=== PATIENT | female | born 1980 | race Caucasian/White ===

== ENCOUNTER 2017-06-04 13:03 | Emergency (ER) | payer OTHER ==
[2017-06-04 13:09] VITALS: BMI 26.5
[2017-06-04] MEDS ORDERED: DEXTROSE 5%-LACTATED RINGERS 500 ML IV ONE ×2 (14:30→15:30)
[2017-06-04 14:31] VITALS: BP 92/53; PULSE 96; TEMP 99.9
[2017-06-04 14:40] LABS: HEMATOCRIT 32.9 % (32.4-45.2); HEMOGLOBIN 11.5 GM/dL (10.7-15.3); MCH 34.3 pg (25.7-33.7); MEAN PLT VOLUME 7.5 fl (7.5-11.1); PLATELET COUNT 248 K/MM3 (134-434); RBC 3.36 M/mm3 (3.60-5.2); RDW 12.5 % (11.6-15.6); WHITE BLOOD COUNT 10.5 K/mm3 (4.0-10.0)
[2017-06-04 15:05] LABS: AMYLASE 46 U/L (25-115); ANION GAP 9 (8-16); BLOOD UREA NITROGEN 9 mg/dL (7-18); CALCIUM 7.9 mg/dL (8.5-10.1); CHLORIDE 107 mmol/L (98-107); CO2 22 mmol/L (21-32); CREATININE 0.3 mg/dL (0.55-1.02); GLUCOSE,RANDOM 89 mg/dL (74-106); LIPASE 80 U/L (73-393); POTASSIUM 3.5 mmol/L (3.5-5.1); SODIUM 138 mmol/L (136-145)
[2017-06-04] MEDS ORDERED: ACETAMINOPHEN 325 MG TABLET (FP) PO ONE (15:40)
[2017-06-04] MEDS ORDERED: ACETAMINOPHEN 325 MG TABLET (FP) ONE (15:43)
== END 2017-06-04 17:20 | disposition home or self-care (01) ==
LOC: JER 13:03
DX: O26.892 Other specified pregnancy related conditions, second trimester (principal); R10.30 Lower abdominal pain, unspecified; M54.5 Low back pain; R11.2 Nausea with vomiting, unspecified; Z3A.21 21 weeks gestation of pregnancy
CPT/HCPCS: 36415; 80048; 82150; 83690; 85027; 99282-25

== ENCOUNTER 2017-10-10 07:45 | Inpatient (IN) | payer OTHER ==
[2017-10-10] MEDS ORDERED: CITRIC ACID/SODIUM CITRATE 30 ML UNIT-DOSE CUP PO ONE (08:30)
[2017-10-10] MEDS ORDERED: ELECTROLYTE-148 SOLN 1,000 ML IV SCH (09:00)
[2017-10-10] MEDS ORDERED: ELECTROLYTE-148 SOLN 1,000 ML IV ONE (09:00)
[2017-10-10 09:02] VITALS: BMI 31.8
--- NOTE | 2017-10-10 09:38 | HP ---
Past Medical History - Admission History of Present Illness: 36 yo @ 39 3/7 wks by first trimester ultrasound, EDC 10/14/2017 complicated by: 1. Transfer of care at 19 wks 2. 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 Prior CD, desiring repeat - declines TOLAC 4. Prior GDM - normal glucose screening this Patient presents for routine scheduled CD. She reports movement, denies leakage of fluid, vaginal bleeding or contractions. 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 Weeks Gestation by Dates: 39.4 ...EDC by Dates: 10/13/17 ...EDC by Sono: 10/14/17 Heme/Onc: No: Anemia - Past Surgical History Past Surgical History: Yes: Hx Myomectomy: No Hx Transabdominal Cerclage: No - Smoking History Smoking history: Never smoked Have you smoked in the past 12 months: No - Alcohol/Substance Use Hx Alcohol Use: No History of Substance Use: reports: None - Social History Usual Living Arrangement: Yes: With Spouse History of Recent Travel: No Home Medications - Allergies Allergies/Adverse Reactions: Allergies Allergy/AdvReac Type Severity Reaction Status Date / Time No Known Allergies Allergy Verified 10/10/17 08:33 - Home Medications Home Medications: Ambulatory Orders Vit No.130/Iron/Folic [ Vitamins] 1 each PO DAILY 06/04/17 Ferrous Sulfate 325 mg PO DAILY 09/11/17 Valacyclovir HCl [Valtrex -] 500 mg PO BID 10/10/17 Family Disease History - Family Disease History Family History: Denies Review of Systems - Review of Systems Constitutional: reports: No Symptoms Neck: reports: No Symptoms Cardiovascular: reports: No Symptoms Respiratory: reports: No Symptoms Gastrointestinal: reports: No Symptoms Genitourinary: reports: No Symptoms Integumentary: reports: No Symptoms Endocrine: reports: No Symptoms Hematology/Lymphatic: reports: No Symptoms Psychiatric: reports: No Symptoms Physical Exam - Maternity Vital Signs: Vital Signs Temperature 98.5 F 10/10/17 09:21 Pulse Rate 86 10/10/17 09:21 Respiratory Rate 20 10/10/17 09:21 Blood Pressure 127/77 10/10/17 09:21 O2 Sat by Pulse Oximetry (%) Constitutional: Yes: Well Nourished, No Distress, Calm Neck: Yes: Supple Cardiovascular: Yes: Regular Rate and Rhythm Lungs: Clear to auscultation - Abdominal Exam/OB Number of Fetuses: Single Presentation: Vertex Contractions: Yes Regularity: Regular Intensity: Mild/Mod Heart Rate (range): 140 Category: I Accelerations: Non-Uniform Decelerations: None - Vaginal Exam/OB Vaginal Bleediing: No - Physical Exam Psychiatric: Yes: Alert, Oriented - Labs Lab Results: PNL: O positive; antibody negative; RPR NR; HBS Ag ; HCV neg; Rubella Immune; Varicella immune; Hg Greer AA; Inheritest WNL; Parvo Imm; ; [id number] WNL; HIV neg; GCT WNL; GBS negative Hemorrhage Risk Assessment - Risk Factors Medium Risk Factors: Yes: None High Risk Factors: Yes: None Risk Score: 1 Risk Level: Medium Risk Assessment/Plan 36 yo P1 prior Cd for repeat 1. Admit to L&D 2. consents reviewed and signed. Risks including but not limited to infection, bleeding, damage to surrounding organs such as bowel and bladder, injury to infant discussed. Discussed need for future planning, risk of abnormal placentation discussed. Written consent obtained. 3. 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 Will proceed to OR
[2017-10-10] MEDS ORDERED: morphine SULFATE/Preservative Free 0.5 MG/ML (1cc Syringe) ONE (10:03)
[2017-10-10] MEDS ORDERED: ceFAZolin SODIUM 1 GM VIAL ONE (10:05)
[2017-10-10] MEDS ORDERED: IBUPROFEN 800 MG/8 ML IJ IVPB PRN (10:22)
[2017-10-10] MEDS ORDERED: ONDANSETRON 4 MG/2 ML VIAL IVPUSH PRN (10:25)
[2017-10-10] MEDS ORDERED: OXYTOCIN 10 UNITS/ML VIAL ONE ×2 (11:07→11:48)
[2017-10-10] MEDS ORDERED: BENZOCAINE 28 GM HEMORRHOIDAL OINTMENT TP PRN (12:11)
[2017-10-10] MEDS ORDERED: WITCH HAZEL 50% (TUCKS) 40 PAD/JAR PAD TP PRN (12:11)
[2017-10-10] MEDS ORDERED: BENZOCAINE 20% 57 GM BOTTLE TP PRN (12:11)
[2017-10-10] MEDS ORDERED: METHYLERGONOVINE MALEATE 0.2 MG/1 ML AMP IM PRN (12:11)
[2017-10-10 12:12] LABS: ARTERIAL BLD GAS O2 SATURATION 19.9 % (90-98.9); ARTERIAL BLOOD GAS BASE EXCESS -8.4 meq/l (-2-2); ARTERIAL BLOOD GAS PCO2 79.2 mmHg (35-45); ARTERIAL BLOOD GAS PO2 15.8 mmHg (80-100); ARTERIAL BLOOD GAS pH 7.1 (7.35-7.45)
[2017-10-10] MEDS ORDERED: OXYTOCIN 20 UNITS in 0.9% NS 20 UNIT/1,000 ML INFUS.BAG IV SCH (12:15)
[2017-10-10 12:16] LABS: VENOUS PC02 70.9 mmHg (38-52); VENOUS PH 7.17 (7.32-7.42); VENOUS PO2 12.3 mmHg (28-48)
--- NOTE | 2017-10-10 12:27 | PN ---
Delivery - Delivery Section: Repeat EBL (cc): 1,000 Delivery, Single - Condition of Infant Gender: Female Weight: 8 lb 15 oz Position: Left, OA - 1 Minute Total Score: 6 5 Minutes Total Score: 9 - Feeding Plan Initial Plan: Elected not to breastfeed exclusively throughout hospitalization Remarks - Remarks Remarks: Surgeon: Angel; Assist: Feliciano; Anesthesia: Benjamin Surgery: Repeat delivery Findings: Female ; LOT, 6, 9; Wt 8lb 15 oz; Length: 20.5 inches; Normal tubes and ovaries bilaterally; meconium fluid; nuchal cord reduced EBL: 1000; UOP: 100; IVF 2100 Dictation:[id number]
[2017-10-10] MEDS ORDERED: IBUPROFEN 800 MG/8 ML IJ IVPB ONE (12:54)
[2017-10-10] MEDS ORDERED: TUBERCULIN PPD 5 TU/0.1ML SYRINGE (IN PATIENT USE ONLY) ID ONE (19:30)
[2017-10-10] MEDS ORDERED: OXYTOCIN 20 UNITS in 0.9% NS 20 UNIT/1,000 ML INFUS.BAG IV ONE (19:51)
[2017-10-11] MEDS: SIMETHICONE 80 MG TAB.CHEW (FP) PO PRN ×4 (05:48→20:41)
[2017-10-11] MEDS: ACETAMINOPHEN 325 MG TABLET (FP) PO PRN ×4 (05:48→20:42)
[2017-10-11] MEDS: IBUPROFEN 600 MG TABLET (FP) PO PRN ×4 (05:49→20:43)
--- NOTE | 2017-10-11 07:24 | OP ---
DATE OF OPERATION: 10/10/2017 ATTENDING PHYSICIAN RESPONSIBLE TO SIGN REPORT: Sheree Ortiz MD PREOPERATIVE DIAGNOSIS: Intrauterine at 39 weeks, prior section, desiring repeat. POSTOPERATIVE DIAGNOSIS: Intrauterine at 39 weeks, prior section, desiring repeat. SURGEON: Sheree Ortiz MD GROUNDS MAINTENANCE WORKER: Kris Wiggins MD ANESTHESIOLOGIST: Lex Alexander MD ANESTHESIA: Spinal. SURGERY: Repeat delivery. FINDINGS: Female infant in LOT position; Apgars 6, 9; weight 8 pounds 16 ounces , length 20.5 inches, normal tubes and ovaries bilaterally. ESTIMATED BLOOD LOSS: 1000. URINE OUTPUT: 100. INTRAVENOUS FLUIDS GIVEN: 2100. INDICATIONS: Patient is a 36-year-old with 1 prior desiring repeat. She was counseled regarding risks, benefits, alternatives, and complications of procedure including infection, bleeding, damage to surrounding organs such as bowel, bladder, ureters. She expressed understanding and was brought to the operating room. DESCRIPTION OF PROCEDURE: When anesthesia was found to be adequate, patient was prepped and draped in a normal sterile fashion, placed in dorsal supine position with a leftward tilt. An approximately 11-cm skin incision was made with the knife and carried down to the underlying rectus muscles using Bovie electrocautery. The fascia was nicked in the midline, extended laterally using the Abraham scissors. Inferior portion of the fascial incision was tented up using Ted clamps and dissected off the underlying rectus muscles using the Abraham scissors. Attention was brought to the superior portion, where in similar fashion, it was tented up using Ted clamps , and dissected off the underlying rectus muscles using the Abraham scissors. The rectus muscles were in the midline. The peritoneum was entered sharply, and the peritoneal incision was extended superiorly and inferiorly. Severe dense adhesions were noted from the bladder to the uterus, which were taken down with Metzenbaum scissors. The hysterotomy was performed. Light meconium fluid was noted. The hysterotomy incision was extended laterally, superolaterally using bandaged scissors. Infants head was found to be unengaged, and with mild difficulty with delivery and flexion of the head, vacuum was attempted with which one pop-off was noted , and the infants head was eventually delivered. Nuchal cord noticed, was then reduced. Shoulders and body were delivered. Cord was clamped and cut. Infant was handed to waiting NICU staff. Cord blood and cord gasses were collected and sent. Placenta was removed. The uterus was cleared of all clot and debris. The uterus was closed using 0 Biosyn in a running layer with the 2nd as an imbricated layer. The vesicouterine peritoneum was reapproximated. Gutters were cleared of all clot and debris. Evaluation of the hysterotomy revealed good hemostasis. The peritoneum was closed using 2-0 Biosyn in a running fashion. The muscles were reapproximated using 0 Biosyn in an interrupted fashion. The fascia was closed using 0 Vicryl in a running fashion. The subcutaneous fat was closed using 0 Biosyn in a running fashion. The skin was reapproximated using 3-0 Vicryl. The patient tolerated the procedure well. Estimated blood loss was 1000 mL. Patient was brought to the recovery room in stable condition. Wally [id number] MTDD
--- NOTE | 2017-10-11 07:33 | PN ---
Post Progress Note - Subjective Subjective: Patient without acute complaints. Tolerating clears, without complaints of nausea or vomiting. No ambulation yet. Denies fevers or chills. without difficulty Pain well controlled Coyne removed this AM, no voiding yet. Denies flatus. continued itching, but mild improvement with rash Post Day: 1 Type of Delivery: Repeat C/S Vital Signs: Vital Signs Temperature 98.1 F 10/11/17 06:00 Pulse Rate 76 10/11/17 06:00 Respiratory Rate 18 10/11/17 06:50 Blood Pressure 116/66 10/11/17 06:00 O2 Sat by Pulse Oximetry (%) 99 10/10/17 13:15 Breast Exam: Yes: Soft Uterus: Yes: Fundus Firm, Fundus below umbilicus Incision: Yes: Dressing dry and intact Abdomen/GI: Yes: Abdomen soft, Abdominal Distention (mild soft), Passing flatus , Tolerating PO. No: Tender Lochia: Yes: Serosa Lochia, amount: Small Extremities: Yes: Calves non-tender. No: Edema Perineum: Yes: Laceration Activity: Ambulating Assessment/Plan 36 yo POD #1 s/p R CD, afebrile, vital signs stable, doing well 1. Continue routine postoperative care. 2. Follow up AM CBC 3. Rh positive status, no rhogam indicated. 4. Encourage ambulation and incentive spirometer use 5. Continue oral pain medication 6. Anticipate discharge home postoperative day #3 or #4
[2017-10-11 08:18] LABS: BASO % 0.4 % (0-2.0); EOS % 2.6 % (0-4.5); HEMATOCRIT 29.5 % (32.4-45.2); HEMOGLOBIN 9.7 GM/dL (10.7-15.3); LYMPH % 17.9 % (8-40); MCH 31.1 pg (25.7-33.7); MCHC 32.9 g/dl (32.0-36.0); MEAN CELL VOLUME 94.5 fl (80-96); MEAN PLT VOLUME 8.2 fl (7.5-11.1); MONO % 4.1 % (3.8-10.2); PLATELET COUNT 160 K/MM3 (134-434); RBC 3.12 M/mm3 (3.60-5.2); RDW 20.3 % (11.6-15.6); WHITE BLOOD COUNT 6.9 K/mm3 (4.0-10.0)
[2017-10-11] MEDS: oxyCODONE HCL 5 MG TABLET PO PRN ×3 (11:14→20:43)
--- NOTE | 2017-10-11 11:23 | PN ---
Progress Note, Physician Chief Complaint: s/p c section under spinal anesthesia post op day one History of Present Illness: duramorph for post op pain control - Current Medication List Current Medications: Active Medications Acetaminophen (Tylenol -) 650 mg PO Q4H PRN PRN Reason: FEVER Last Admin: 10/11/17 09:43 Dose: 650 mg Benzocaine (Americaine 20% [place] -) 1 spray TP PRN PRN PRN Reason: Pain - Topical Benzocaine (Americaine Ointment -) 1 applic TP PRN PRN PRN Reason: Pain - Topical Bisacodyl (Dulcolax Suppository -) 10 mg RC PRN PRN PRN Reason: CONSTIPATION Diphenhydramine HCl (Benadryl Injection -) 25 mg IVPUSH Q4H PRN PRN Reason: FOR ITCHING Hydrocortisone (Anusol 2.5% Hc Cream -) 1 applic TP BID ELIZABETH Hydrocortisone (Hytone 1% Ointment -) 1 applic TP Q6H PRN PRN Reason: itching Ibuprofen (Motrin -) 600 mg PO Q4H PRN PRN Reason: PAIN LEVEL 1 - 3 Last Admin: 10/11/17 09:42 Dose: 600 mg Methylergonovine Maleate (Methergine Injection -) 0.2 mg IM Q4H PRN PRN Reason: Excessive Bleeding (L&D) Ondansetron HCl (Zofran Injection) 4 mg IVPUSH Q6H PRN PRN Reason: NAUSEA AND/OR VOMITING Last Admin: 10/10/17 22:18 Dose: 4 mg Oxycodone HCl (Roxicodone -) 5 mg PO Q4H PRN PRN Reason: PAIN LEVEL 4 - 6 Last Admin: 10/11/17 11:14 Dose: 5 mg Oxycodone HCl (Roxicodone -) 10 mg PO Q4H PRN PRN Reason: PAIN LEVEL 7 - 10 Senna/Docusate Sodium (Pericolace -) 2 tablet PO HS PRN PRN Reason: CONSTIPATION Simethicone (Mylicon -) 80 mg PO Q4H PRN PRN Reason: GAS Last Admin: 10/11/17 09:43 Dose: 80 mg Witch Anne-Marie/Glycerin (Tucks Pads -) 1 pad TP PRN PRN PRN Reason: Pain - Topical Zinc Acetate/Diphenhydramine (Benadryl 2% Cream) 1 applic TP BID ELIZABETH Last Admin: 10/11/17 10:46 Dose: 1 tube - Objective Vital Signs: Vital Signs Temperature 97.4 F L 10/11/17 09:04 Pulse Rate 78 10/11/17 09:04 Respiratory Rate 18 10/11/17 10:43 Blood Pressure 109/72 10/11/17 09:04 O2 Sat by Pulse Oximetry (%) 99 10/10/17 13:15 Constitutional: Yes: Well Nourished Cardiovascular: Yes: WNL Respiratory: Yes: WNL Gastrointestinal: Yes: WNL Labs: CBC, BMP 10/11/17 07:50 Assessment/Plan pain controlled, no nausea or vomiting, no adverse effect of anesthetic. dept of anesthesia will sign off care at this time
[2017-10-11] MEDS ORDERED: BISACODYL 10 MG SUPP.RECT RC PRN (12:11)
[2017-10-11] MEDS: HYDROCORTISONE 1% TOPICAL OINT 30 GM TUBE TP PRN ×2 (14:09→22:06)
[2017-10-11] MEDS: HYDROCORTISONE 2.5% TOPICAL CREAM 30 GM TUBE TP SCH ×2 (14:11→22:04)
[2017-10-12] MEDS: SIMETHICONE 80 MG TAB.CHEW (FP) PO PRN ×4 (06:08→21:46)
[2017-10-12] MEDS: IBUPROFEN 600 MG TABLET (FP) PO PRN ×4 (06:09→21:45)
[2017-10-12] MEDS: ACETAMINOPHEN 325 MG TABLET (FP) PO PRN ×2 (06:09→21:46)
[2017-10-12] MEDS: oxyCODONE HCL 5 MG TABLET PO PRN ×4 (06:09→21:46)
--- NOTE | 2017-10-12 08:20 | PN ---
Progress Note (short form) - Note Progress Note: pod 2 doing well, passing gas CBC, BMP 10/11/17 07:50 Last Vital Signs Temp Pulse Resp BP Pulse Ox 98.0 F 79 18 117/57 99 10/11/17 22:00 10/11/17 22:00 10/11/17 22:00 10/11/17 22:00 10/10/17 13:15 abdomen soft, no distension, no cva incision dry, clean no calf tenderness no excess vaginal bleeding plan ambulate . cbc in am
[2017-10-12] MEDS: HYDROCORTISONE 2.5% TOPICAL CREAM 30 GM TUBE TP SCH ×2 (10:24→23:04)
[2017-10-12] MEDS: SENNOSIDES/DOCUSATE COMBO (SENNA PLUS) TABLET (UD) PO PRN (21:46)
[2017-10-13] MEDS: ACETAMINOPHEN 325 MG TABLET (FP) PO PRN (04:20)
[2017-10-13] MEDS: SIMETHICONE 80 MG TAB.CHEW (FP) PO PRN ×5 (04:20→22:23)
[2017-10-13] MEDS: oxyCODONE HCL 5 MG TABLET PO PRN ×5 (04:21→22:23)
[2017-10-13] MEDS: IBUPROFEN 600 MG TABLET (FP) PO PRN ×5 (04:21→22:23)
[2017-10-13 07:15] LABS: BASO % 0.3 % (0-2.0); HEMATOCRIT 30.2 % (32.4-45.2); HEMOGLOBIN 10.3 GM/dL (10.7-15.3); LYMPH % 23.1 % (8-40); MCH 32.1 pg (25.7-33.7); MEAN CELL VOLUME 94.6 fl (80-96); MEAN PLT VOLUME 7.9 fl (7.5-11.1); MONO % 4.3 % (3.8-10.2); NEUT % 67.3 % (42.8-82.8); PLATELET COUNT 184 K/MM3 (134-434); RBC 3.19 M/mm3 (3.60-5.2); RDW 20.5 % (11.6-15.6); WHITE BLOOD COUNT 6.6 K/mm3 (4.0-10.0)
[2017-10-13] MEDS: HYDROCORTISONE 1% TOPICAL OINT 30 GM TUBE TP PRN (10:07)
[2017-10-13] MEDS: HYDROCORTISONE 2.5% TOPICAL CREAM 30 GM TUBE TP SCH ×2 (10:08→21:06)
[2017-10-13 13:18] LABS: ANISOCYTOSIS 1+; PLATELET ESTIMATE ADEQUATE
--- NOTE | 2017-10-13 14:34 | PN ---
Post Progress Note - Subjective Subjective: No complains, voiding, ambulating, tolerating regular diet Post Day: 3 Type of Delivery: Repeat C/S Vital Signs: Vital Signs Temperature 98.4 F 10/13/17 10:00 Pulse Rate 69 10/13/17 10:00 Respiratory Rate 20 10/13/17 10:00 Blood Pressure 111/67 10/13/17 10:00 O2 Sat by Pulse Oximetry (%) 99 10/10/17 13:15 Breast Exam: Yes: Soft Uterus: Yes: Fundus Firm Incision: Yes: Dressing dry and intact Abdomen/GI: Yes: Abdomen soft Lochia: Yes: Rubra Lochia, amount: Small Extremities: Yes: Calves non-tender Activity: Ambulating - Labs Labs: CBC WBC 6.6 K/mm3 (4.0-10.0) 10/13/17 06:00 RBC 3.19 M/mm3 (3.60-5.2) L 10/13/17 06:00 Hgb 10.3 GM/dL (10.7-15.3) L 10/13/17 06:00 Hct 30.2 % (32.4-45.2) L 10/13/17 06:00 MCV 94.6 fl (80-96) 10/13/17 06:00 MCH 32.1 pg (25.7-33.7) 10/13/17 06:00 MCHC 34.0 g/dl (32.0-36.0) 10/13/17 06:00 RDW 20.5 % (11.6-15.6) H 10/13/17 06:00 Plt Count 184 K/MM3 (134-434) 10/13/17 06:00 MPV 7.9 fl (7.5-11.1) 10/13/17 06:00 Absolute Neuts (auto) 4.4 K/mm3 (1.5-8.0) 10/13/17 06:00 Neutrophils % 67.3 % (42.8-82.8) 10/13/17 06:00 Lymphocytes % 23.1 % (8-40) D 10/13/17 06:00 Monocytes % 4.3 % (3.8-10.2) 10/13/17 06:00 Eosinophils % 5.0 % (0-4.5) H D 10/13/17 06:00 Basophils % 0.3 % (0-2.0) 10/13/17 06:00 Nucleated RBC % 0 % (0-0) 10/13/17 06:00 Hypochromia 1+ 10/13/17 06:00 Platelet Estimate Adequate 10/13/17 06:00 Platelet Comment No clumping noted 10/13/17 06:00 Polychromasia 1+ 10/13/17 06:00 Anisocytosis 1+ 10/13/17 06:00 Microcytosis 1+ 10/13/17 06:00 Assessment/Plan 36yo P2 s/p Repeat c/section VSS, Afebrile Doing well Rh pos - no need for RhoGam Routine care Plan d/c 10/14/17
[2017-10-13] MEDS: SENNOSIDES/DOCUSATE COMBO (SENNA PLUS) TABLET (UD) PO PRN (21:06)
[2017-10-13 22:05] VITALS: TEMP 98
[2017-10-14] MEDS: oxyCODONE HCL 5 MG TABLET PO PRN ×2 (05:20→09:40)
[2017-10-14] MEDS: SIMETHICONE 80 MG TAB.CHEW (FP) PO PRN ×2 (05:20→09:40)
[2017-10-14] MEDS: ACETAMINOPHEN 325 MG TABLET (FP) PO PRN (05:20)
[2017-10-14] MEDS: HYDROCORTISONE 2.5% TOPICAL CREAM 30 GM TUBE TP SCH (09:33)
[2017-10-14] MEDS: HYDROCORTISONE 1% TOPICAL OINT 30 GM TUBE TP PRN (09:35)
[2017-10-14] MEDS: IBUPROFEN 600 MG TABLET (FP) PO PRN (09:40)
[2017-10-14 10:41] VITALS: BP 123/78; PULSE 76
--- NOTE | 2017-10-14 12:36 | DS ---
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 Signs: Vital Signs Temperature 98 F 10/14/17 10:00 Pulse Rate 76 10/14/17 10:00 Respiratory Rate 20 10/14/17 10:00 Blood Pressure 123/78 10/14/17 10:00 O2 Sat by Pulse Oximetry (%) 99 10/10/17 13:15 Constitutional: Yes: Well Nourished, No Distress, Calm Eyes: Yes: WNL, Conjunctiva Clear, EOM Intact HENT: Yes: WNL, Atraumatic, Normocephalic Neck: Yes: WNL, Supple, Trachea Midline Cardiovascular: Yes: WNL, Regular Rate and Rhythm Respiratory: Yes: WNL, Regular, CTA Bilaterally Gastrointestinal: Yes: WNL, Normal Bowel Sounds, Soft Renal/: Yes: WNL Pelvis: Yes: WNL External Genitalia: Yes: Normal ....Post : Yes: Uterus firm, Uterus non-tender Breast(s): Yes: WNL Musculoskeletal: Yes: WNL Extremities: Yes: WNL Integumentary: Yes: WNL Wound/Incision: Yes: Clean/Dry, Well Approximated Neurological: Yes: WNL, Alert, Oriented ...Motor Strength: WNL Psychiatric: Yes: WNL, Alert, Oriented Labs: CBC, BMP 10/13/17 06:00 Delivery - Delivery Section: Repeat Type of Anesthesia: Spinal Episiotomy/Laceration: None EBL (cc): 1,000 Delivery, Single - Stages of Labor Date of Delivery: 10/10/17 Time of Delivery: 11:19 Time Placenta Delivered: 11:20 - Condition of Java Android Developer/Rand 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 You may walk unlimited ynes of and climb stairs. You may resume driving the car when you feel safe and comfortable behind the wheel. No sexual activity as instructed. Wound care If you have a bandage, leave it on, and keep dry for 48-72 hours. After that time discard the outer bandage. If they are tapes on the skin under the out of bandage leave them in place. They will peel off in the next 7 to 10 days. Do Not Peel them off. You may shower the day after surgery. If there are tapes present on the skin, you may shower over them. Diet There are no dietary restrictions. Eat healthy, high-fiber foods. Drink 6 to 8 glasses of liquid each day. This will assist in keeping your bowels are regular. Pain management You may take Tylenol or acetaminophen or Ibuprofen (for example, Motrin, Advil etc.) from my pain prescription medication is ordered should be taken as prescribed for moderate to severe pain. Call MD for any of the following: Severe pain not relieved by medication Fever of 101 or higher Excessive bleeding or drainage on dressing Inability to urinate Referrals: Miguelangel Worrell MD [Staff Physician] - Disposition: HOME - Home Medications Comprehensive Discharge Medication List: Ambulatory Orders Vit No.130/Iron/Folic [ Vitamins] 1 each PO DAILY 06/04/17 Ferrous Sulfate 325 mg PO DAILY 09/11/17 Valacyclovir HCl [Valtrex -] 500 mg PO BID 10/10/17 Oxycodone HCl/Acetaminophen [Percocet 5-325 mg Tablet -] 1 - 2 tab PO Q6H PRN # 20 tab MDD 8 10/12/17
--- NOTE | 2017-10-18 15:48 | PATH ---
Surgical Pathology Report Patient Name: MARGARITO AYALA [facility]. Rec. #: [id number] /Age/Gender: 1980 (Age: 36) / F Account: [id number] Location: [facility] OBS/SOFTWARE CLIENT ARCHITECT Taken: 10/10/2017 Received: 10/11/2017 Reported: 10/18/2017 Physicians: Sheree Ortiz Specimen(s) Received PLACENTA Clinical History , previous x2 Final Diagnosis PLACENTA, SECTION: 626 G THIRD TRIMESTER PLACENTA WITH TRIVASCULAR UMBILICAL CORD AND PLACENTAL MEMBRANES WITH MECONIUM LADEN MACROPHAGES. Electronically Signed Еелна Eller M.D. Gross Description The specimen is received fresh labeled placenta and is a 626 gram, 19.0 x 17.0 x 3.1 cm. placenta with attached membranes and umbilical cord. The attached membranes are kohli green, meconium stained, cloudy and insert marginally. The umbilical cord measures 20 cm. in length and averages 1 cm. in diameter. The cord inserts centrally. No true knots or strictures are identified. Cut surface of the umbilical cord reveals 3 vessels. The surface is swan green, meconium stained with minimal fibrin deposition and appropriate caliber vessels. The maternal surface is red-brown with focal defects. Sectioning reveals red-brown, spongy parenchyma. No lesions are identified. Branch Administrator sections are submitted in three cassettes as follows: 1- membrane rolls and umbilical cord; 2-3- full thickness sections of placenta. 10/17/2017 [facility]/17/2017
== END 2017-10-14 12:40 | disposition home or self-care (01) | DRG 540 ==
LOC: JLDR 07:45 → J3W 20:05
PROVIDERS: ADMIT Obstetrics & Gynecology; ATTEND Obstetrics & Gynecology
PROC: 10D00Z1 Extraction of Products of Conception, Low, Open Approach (ICD-10-PCS; principal; 2017-10-10)
DX: O34.211 Maternal care for low transverse scar from previous cesarean delivery (principal); O98.313 Other infections with a predominantly sexual mode of transmission complicating pregnancy, third trimester; O69.81X0 Labor and delivery complicated by cord around neck, without compression, not applicable or unspecified; O77.0 Labor and delivery complicated by meconium in amniotic fluid; O36.0930 Maternal care for other rhesus isoimmunization, third trimester, not applicable or unspecified; A60.09 Herpesviral infection of other urogenital tract; O26.893 Other specified pregnancy related conditions, third trimester; J45.909 Unspecified asthma, uncomplicated; G43.909 Migraine, unspecified, not intractable, without status migrainosus; Z3A.39 39 weeks gestation of pregnancy; Z37.0 Single live birth
CPT/HCPCS: 36415; 36600; 82803; 85025; 88307-TC

== ENCOUNTER 2017-10-25 18:36 | Emergency (ER) | payer OTHER ==
[2017-10-25 18:50] VITALS: BP 121/57; PULSE 102; TEMP 99.7; BMI 29.2
--- NOTE | 2017-10-25 18:52 | PDOC ---
Rapid Medical Evaluation Chief Complaint: Pain, Acute Time Seen by Provider: 10/25/17 18:46 Medical Evaluation: Allergies Allergy/AdvReac Type Severity Reaction Status Date / Time No Known Allergies Allergy Verified 10/25/17 18:45 10/25/17 18:47 Pt presents for abdominal pain s/p . Pt states that it feels like gas pain and that it is sharp and stabbing. Rates the pain a 7/10. Pt is having bowel movements and passing gas. Exam: abdomen diffusely tender, but soft. VSS, afebrile Order: Labs, IV Pt to proceed to ED for further evaluation Discharge Disposition - Diagnosis Abdominal pain - Referrals - Patient Instructions - Post Discharge Activity
--- NOTE | 2017-10-25 19:34 | PDOC ---
History of Present Illness - General Chief Complaint: Pain, Acute Stated Complaint: PCP SENT/ABDOMINAL PAIN Time Seen by Provider: 10/25/17 18:46 - History of Present Illness Initial Comments: 10/25/17 20:21 The patient is a 36 year old female with no significant PMH who presents for evaluation of abdominal pain and fever. The patient reports that she recently had a on 10/10. She notes that over the past 1-2 days, she has been experiencing poorly described periumbilical abdominal pain that she describes as a bloating sensation with some associated nausea. She states that she measured a fever of 100.3 today prompting her presentation to the ED for further evaluation. She notes that her pain is somewhat similar to her post- operative pain that she has been experiencing. She otherwise denies chills, SOB , chest pain, vomiting, vaginal discharge, or changes with urination or bowel movements. Past History - Past Medical History Allergies/Adverse Reactions: Allergies Allergy/AdvReac Type Severity Reaction Status Date / Time No Known Allergies Allergy Verified 10/25/17 18:45 Home Medications: Ambulatory Orders Amox-Tr/K Cl [Augmentin - 875Mg Tablet] 1 tab PO BID #14 tablet 10/26/17 Asthma: No Cancer: No Cardiac Disorders: No COPD: No Diabetes: No HTN: No Seizures: No Thyroid Disease: No - Suicide/Smoking/Psychosocial Hx Smoking History: Never smoked Have you smoked in the past 12 months: No Hx Alcohol Use: No Drug/Substance Use Hx: No Substance Use Type: None Hx Substance Use Treatment: No Review of Systems - Review of Systems Comments:: 10/25/17 20:29 Constitutional: Fevers. No chills, fatigue, malaise HEENT: No Rhinorrhea, nasal congestion, visual changes Cardiovascular: No chest pain, syncope, palpitations, lightheadedness Respiratory: No Cough, SOB, Hemoptysis, Gastrointestinal: Abdominal pain. nausea. No Vomiting, Constipation, Diarrhea, Melena Genitourinary: Dysuria. No Frequency, Urgency, Hesitancy, Hematuria, Flank pain Musculoskeletal: No Myalgia, arthralgia Skin: No rashes, itching, bruising, pallor Neurologic: No Headache, Dizziness, Numbness, Weakness, or Tingling Psychiatric: No Hallucinations. No SI or HI *Physical Exam - Vital Signs Last Vital Signs Temp Pulse Resp BP Pulse Ox 99.7 F H 102 H 18 121/57 100 10/25/17 18:45 10/25/17 18:45 10/25/17 18:45 10/25/17 18:45 10/25/17 18:45 - Physical Exam Comments: 10/25/17 21:18 General Appearance: Nourished. No Apparent Distress HEENT: No Pharyngeal Erythema, Tonsillar Exudate, Tonsillar Erythema Neck: No Cervical Lymphadenopathy Respiratory/Chest: Lungs Clear, Normal Breath Sounds. No Crackles, Rales, Rhonchi, Wheezing Cardiovascular: Regular Rhythm, Regular Rate. No Murmur, Gallops, Rubs Gastrointestinal/Abdominal: Normal Bowel Sounds, Soft. Diffuse periumbilical discomfort with palpation. No Guarding, Rebound, Pelvic Exam: Normal external exam. Cervical OS is Closed. No Discharge noted. No CMT or Adenexal tenderness. Musculoskeletal: No CVA Tenderness Extremity: Normal Capillary Refill Integumentary: Normal Color, Dry, Warm Neurologic: Fully Oriented, Alert, Normal Mood/Affect, Normal Response, ED Treatment Course - LABORATORY CBC & Chemistry Diagram: 10/25/17 18:40 10/25/17 18:40 Medical Decision Making - Medical Decision Making 10/25/17 21:24 The patient is a 36 year old female with no significant PMH who presents for evaluation of abdominal pain and fever. Differential includes but is not limited to: Pancreatitis, Gastritis, UTI, Surgical Complications, Illeus, Infectious, Metabolic Derangement. Given the patient's history and physical exam, we will obtain a cbc, cmp, lipase, ua, urine culture, CT abdomen pelvis to evaluate further for possible etiologies. We will treat with iv fluids, iv tylenol in the meantime and continue to monitor and reassess while here in the ED. 10/26/17 03:45 CBC, cmp, lipase are unremarkable. UA demonstrates a positive leuk esterase with elevated wbc. CT abdomen pelvis demonstrates hypodense structure in the uterus as read by our radiologist. Subsequent trans vaginal US demonstrated concerns for possible retained products of conception as preliminarily read by our front counter clerk radiologist. We discussed the case with Dr. Wiggins who recommended treatment with augmentin and follow up with the patient's OB Dr. Worrell today. We are comfortable discharging the patient home on augmentin with OB follow up today given that she appears clinically well on exam. We discussed the results, plan, and strict return precautions with the patient who voiced understanding and is agreeable with the plan. *DC/Admit/Observation/Transfer Diagnosis at time of Disposition: Abdominal pain Qualifiers: Abdominal location: unspecified location Qualified Code(s): R10.9 - Unspecified abdominal pain - Discharge Dispostion Disposition: HOME Condition at time of disposition: Stable Decision to Admit order: No - Prescriptions Prescriptions: Amox-Tr/K Cl [Augmentin - 875Mg Tablet] 1 tab PO BID #14 tablet - Referrals Referrals: Bambi Abreu [Primary Care Provider] - Miguelangel Worrell MD [Staff Physician] - - Patient Instructions Printed Discharge Instructions: DI for Abdominal Pain-Adult Additional Instructions: Please return to the ER if you experience concerning or worsening symptoms including worsening pain, fevers, or vomiting. Your lab results were normal here in the ER. There were findings on your CT scan and ultrasound that were concerning for retained products of conception. We have sent a prescription to your pharmacy for antibiotics that you take twice a day. You must call to schedule a follow up appointment with Dr. Worrell TODAY to discuss your ER visit, results, and further management of your symptoms. - Post Discharge Activity
--- NOTE | 2017-10-25 19:46 | PDOC ---
Attending Attestation - Resident Resident Name: Nikolay Green - HPI HPI: 10/25/17 21:22 Pt presents to the ED complaining of nausea and diffuse abdominal pain that has been intermittent since her C section two weeks ago but recurred two days ago. Patient also complains of fever today and nausea without vomiting. STates that she has had intermittent vaginal bleeding since the date of her c section and that her bleeding today is not heavy or foul smelling, but is consistent with a typical period. - Physicial Exam PE: 10/25/17 21:32 Agree with resident exam. Patient is well appearing and in no acute distress. Abdomen: non distended, soft, + diffuse tenderness to deep palpation without guarding or rebound. - Medical Decision Making 10/25/17 21:33 Pt presents to the ED complaining of diffuse abdominal pain, fever and nausea. Differential includes normal post operative pain, less likely endometritis, PID , perforation, obstruction or illeus. Will check pelvic exam and CT abdomen pelvis, likely discharge home if CT is normal. 10/25/17 21:35
[2017-10-25] MEDS ORDERED: ONDANSETRON 4 MG/2 ML VIAL IVPUSH ONE (19:53)
[2017-10-25] MEDS ORDERED: SODIUM CHLORIDE 1,000 ML IV STA (19:53)
[2017-10-25] MEDS ORDERED: ACETAMINOPHEN 1000 MG/100 ML VIAL (NON FORMULARY) IVPB ONE (19:53)
[2017-10-25] MEDS ORDERED: ONDANSETRON 4 MG/2 ML VIAL ONE (20:02)
[2017-10-25 20:09] LABS: BASO % 0.8 % (0-2.0); EOS % 2.2 % (0-4.5); HEMATOCRIT 38.5 % (32.4-45.2); HEMOGLOBIN 13.1 GM/dL (10.7-15.3); LYMPH % 14.3 % (8-40); MCH 32.2 pg (25.7-33.7); MEAN CELL VOLUME 94.8 fl (80-96); MEAN PLT VOLUME 7.3 fl (7.5-11.1); MONO % 3.5 % (3.8-10.2); NEUT % 79.2 % (42.8-82.8); PLATELET COUNT 277 K/MM3 (134-434); RBC 4.06 M/mm3 (3.60-5.2); RDW 18.6 % (11.6-15.6)
[2017-10-25 20:36] LABS: URINE APPEARANCE SLCLOUDY; URINE BILIRUBIN NEGATIVE (<2.0 mg/dL); URINE COLOR YELLOW; URINE GLUCOSE (UA) NEGATIVE (NEGATIVE); URINE KETONE NEGATIVE (NEGATIVE); URINE NITRITE NEGATIVE (NEGATIVE); URINE PROTEIN NEGATIVE (NEGATIVE); URINE UROBILINOGEN NEGATIVE mg/dL (0.2-1.0)
[2017-10-25 20:38] LABS: ALBUMIN 3.6 g/dl (3.4-5.0); ANION GAP 12 MMOL/L (8-16); BILIRUBIN,TOTAL 0.6 mg/dL (0.2-1.0); BLOOD UREA NITROGEN 12 mg/dL (7-18); CALCIUM 8.1 mg/dL (8.5-10.1); CHLORIDE 109 mmol/L (98-107); CO2 22 mmol/L (21-32); CREATININE 0.4 mg/dL (0.55-1.3); GLUCOSE,RANDOM 93 mg/dL (74-106); POTASSIUM 3.6 mmol/L (3.5-5.1); SGOT/AST 22 U/L (15-37); SGPT/ALT 30 U/L (13-61); SODIUM 143 mmol/L (136-145); TOT PROT 7.2 g/dl (6.4-8.2)
[2017-10-25 20:39] LABS: ALK PHOS 121 U/L (45-117)
[2017-10-25 20:44] LABS: INR 1.04 (0.83-1.09); PROTHROMBIN TIME (PATIENT) 11.8 SEC (9.7-13.0)
[2017-10-25 20:47] LABS: URINE LEUK ESTERASE 3+ (NEGATIVE)
[2017-10-25 20:50] LABS: EPI CELLS RARE /HPF (FEW); URINE MUCUS MANY
[2017-10-26] MEDS ORDERED: AMOX TR/POT CLAV 875MG/125MG TABLETS (FP) PO ONE (02:02)
[2017-10-26] MEDS ORDERED: AMOX TR/POT CLAV 875MG/125MG TABLETS (FP) ONE (02:35)
== END 2017-10-26 02:35 | disposition home or self-care (01) ==
LOC: JER 18:36
DX: O90.89 Other complications of the puerperium, not elsewhere classified (principal); G89.18 Other acute postprocedural pain; O86.4 Pyrexia of unknown origin following delivery; R10.9 Unspecified abdominal pain
CPT/HCPCS: 36415; 74177-TC; 76830-TC; 80053; 81003; 81015; 83690; 84703; 85025; 85610; 87086; 99282-25; J0131; J7030

== ENCOUNTER 2019-08-04 07:10 | Inpatient (IN) | payer OTHER ==
[2019-08-04] MEDS ORDERED: ELECTROLYTE-148 SOLN 1,000 ML IV SCH (08:30)
--- NOTE | 2019-08-04 08:33 | HP ---
Past Medical History - Primary Care Physician PCP:: Miguelangel Worrell - Admission Chief Complaint: 38yo P2 with at EGA 39wk and 5d admitted for repeat C/S. 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 Pulmonary: Yes: Asthma Gastrointestinal: No: Ascites, Cancer, Constipation, Crohn's Disease, Diverticulitis, Diverticulosis, Esophageal Varices, Gastritis, GERD, GI Bleed, Hemorrhoids, Hiatal Hernia, Inflamatory Bowel Disease, Irritable Bowel Disease, Pancreatitis, Peptic Ulcer Disease, Ulcerative Colitis, Other Hepatobiliary: No: Cirrhosis, Cholelithiasis, Cholecystitis, Choledocholithiasis, Hepatitis A, Hepatitis B, Hepatitis C, Other Renal/: No: Renal Failure, Renal Inusuff, BPH, Cancer, Hematuria, He modialysis, Neurogenic Bladder, Renal Calculi, UTI, Other Reproductive: No: Ectopic , Endometriosis, Fibroids, PID, Polycystic Ovary Syndrome, Postmenopausal, Other ...Para: 2 ... Weeks Gestation by Dates: 39.5 Heme/Onc: No: Anemia, B12 Deficiency, Bleeding Disorder, Cancer, Current Chemoth erapy, Current Radiation Therapy, Hemochromatosis, Hypercoaguable State, Myeloproliferative Synd, Sickle Cell Disease, Sickle Cell Trait, Thrombocytopenia, Other Infectious Disease: No: AIDS, C-Diff, Herpes Zoster, HIV, MRSA, STD's, Tuberculosis, VREF, Other Psych: No: Addictions, Anxiety, Bipolar, Depression, Panic, Psychosis, Schizophrenia, Other Musculoskeletal: No: Bursitis, Chronic low back pain, Hemiparesis, Hemiplegia, Osteoarthritis, Paraplegia, Other Rheumatology: No: Fibromyalgia, Gout, Lupus, Rheumatoid Arthritis, Sarcoidosis, Vasculitis, Other ENT: No: Allergic Rhinitis, Sinusitis, Other Endocrine: No: Zebulon's Disease, [place]'s Disease, Diabetes Insipidus, Diabetes Mellitus, Hyperparathyroidism, Hyperthyroidism, Hypothyroidism, Osteopenia, SIADH, Other Dermatology: No: Basal Cell, Cellulitis, Eczema, Melanoma, Psoriasis, Squamous Cell, Other - Past Surgical History Past Surgical History: Yes: Hx Myomectomy: No Hx Transabdominal Cerclage: No - Smoking History Smoking history: Never smoked Have you smoked in the past 12 months: No - Alcohol/Substance Use Hx Alcohol Use: No History of Substance Use: reports: None - Social History Usual Living Arrangement: Yes: With Spouse, With Child Do you think of yourself as: Straight/Heterosexual ADL: Independent History of Recent Travel: No Home Medications - Allergies Allergies/Adverse Reactions: Allergies Allergy/AdvReac Type Severity Reaction Status Date / Time No Known Allergies Allergy Verified 10/25/17 18:45 - Home Medications Home Medications: Ambulatory Orders Amox-Tr/K Cl [Augmentin - 875Mg Tablet] 1 tab PO BID #14 tablet 10/26/17 Family Medical History Family Hx Cancer: Mother (breast) Review of Systems - Review of Systems Constitutional: reports: No Symptoms Eyes: reports: No Symptoms HENT: reports: No Symptoms Neck: reports: No Symptoms Cardiovascular: reports: No Symptoms Respiratory: reports: No Symptoms Gastrointestinal: reports: No Symptoms Genitourinary: reports: No Symptoms Breasts: reports: No Symptoms Reported Musculoskeletal: reports: No Symptoms Integumentary: reports: No Symptoms Neurological: reports: No Symptoms Endocrine: reports: No Symptoms Hematology/Lymphatic: reports: No Symptoms Psychiatric: reports: No Symptoms Pain Intensity: 0 Physical Exam - Maternity Constitutional: Yes: Well Nourished, No Distress, Calm Eyes: Yes: WNL, Conjunctiva Clear, EOM Intact HENT: Yes: WNL, Atraumatic, Normocephalic Neck: Yes: WNL, Supple, Trachea Midline Cardiovascular: Yes: WNL, Regular Rate and Rhythm Lungs: Clear to auscultation, Normal air movement Breast(s): Yes: WNL - Abdominal Exam/OB Fundal Height: 39 Number of Fetuses: Single Presentation: Vertex Contractions: No Heart Rate Location: Midline Category: I Accelerations: Uniform Decelerations: None - Vaginal Exam/OB Vaginal Bleeding: No Speculum Exam: No Amniotic Membrane Status: Intact Presentation: Vertex/Position (US) - Physical Exam Musculoskeletal: Yes: WNL Extremities: Yes: WNL Edema: No Integumentary: Yes: WNL Deep Tendon Reflex Grade: Normal +2 ...Motor Strength: WNL Psychiatric: Yes: WNL, Alert, Oriented Hemorrhage Risk Assessment - Risk Factors Medium Risk Factors: Yes: Prior , uterine surgery,or multiple laparotomies High Risk Factors: Yes: None Risk Score: 1 Risk Level: Medium Risk Imaging - Results Ultrasound: Report Reviewed, Image Reviewed Assessment/Plan 38yo P2 with at EGA 39wk and 5d admitted for repeat C/S. We discussed the risks and benefits of C/S at length, including but not limited to scarring, pain, bleeding, infection, injury to underlying organs and structures, need for additional surgery to repair/treat any problems or complications, complications/injuries, etc. The pt verbalized her understanding and requested to proceed with surgery. The pt is aware that all surgeries have risks and no guarantees can be provided.
[2019-08-04 09:48] VITALS: BMI 32.1
[2019-08-04] MEDS ORDERED: CITRIC ACID/SODIUM CITRATE 30 ML UNIT-DOSE CUP PO ONE (09:57)
[2019-08-04] MEDS ORDERED: morphine SULFATE/PF 0.5 MG/ML (2cc Syringe - QUVA) ONE (10:04)
[2019-08-04] MEDS ORDERED: ePHEDrine SULFATE 50 MG/1 ML AMPULE ONE (10:15)
[2019-08-04] MEDS ORDERED: ceFAZolin SODIUM 1 GM VIAL ONE (10:20)
[2019-08-04] MEDS ORDERED: OXYTOCIN 20 UNITS in 0.9% NS 40 UNIT/2,000 ML INFUS.BAG IV ONE (10:35)
[2019-08-04] MEDS: OXYTOCIN 20 UNITS in 0.9% NS 20 UNIT/1,000 ML INFUS.BAG IV SCH ×2 (11:20→18:03)
[2019-08-04] MEDS ORDERED: METHYLERGONOVINE MALEATE 0.2 MG/1 ML AMP IM PRN (11:36)
[2019-08-04] MEDS ORDERED: IBUPROFEN 800 MG/8 ML IJ IVPB PRN (11:36)
[2019-08-04] MEDS ORDERED: WITCH HAZEL 50% (TUCKS) 40 PAD/JAR PAD TP PRN (11:36)
[2019-08-04] MEDS ORDERED: SENNOSIDES/DOCUSATE COMBO (SENNA PLUS) TABLET (UD) PO PRN (11:36)
[2019-08-04] MEDS ORDERED: ACETAMINOPHEN 1000 MG/100 ML VIAL (NON FORMULARY) IVPB PRN (11:38)
--- NOTE | 2019-08-04 11:43 | OP ---
Operative Note - Note: Operative Date: 08/04/19 Pre-Operative Diagnosis: at EGA 39w5d. Prior C/S x 2. AMA Operation: Repeat LT C/S, revision of keloid scar Findings: Live baby boy in vtx presentation, head was not engaged, no meconium in amniotic fluid, 9-9, dense adhesions around bladder and MARCO, normal uterus/tubes/ovaries. baby wt = 9lb 5 oz Post-Operative Diagnosis: Same as Pre-op Surgeon: Miguelangel Worrell Derrick Man: Sheree Ortiz Anesthesiologist/TRANSITION SPECIALIST: Charissa Coats MD Anesthesia: Spinal Specimens Removed: Placenta, old skin scar Estimated Blood Loss (mls): 700 Drains & Tubes with Location: [place] cath Drains, Volume Out (mls): 200 Blood Volume Replaced (mls): 0 Fluid Volume Replaced (mls): 2,000 Operative Report Dictated: Yes
[2019-08-04 11:49] LABS: CORD HCO3 17.7 mmHg (20-29); CORD PCO2 44.8 mmHg (30-78); CORD pH 7.214 (7.14-7.44)
[2019-08-04 11:50] LABS: CORD PCO2 70.1 mmHg (30-78); CORD pH 7.115 (7.14-7.44)
[2019-08-04] MEDS ORDERED: ACETAMINOPHEN INJECTION 100 ML IVPB ONE (11:56)
[2019-08-04] MEDS ORDERED: morphine SULFATE/PF 0.5 MG/ML (2cc Syringe - QUVA) EP ONE (12:05)
[2019-08-04] MEDS ORDERED: ONDANSETRON 4 MG/2 ML VIAL IVPUSH PRN (12:05)
--- NOTE | 2019-08-05 05:39 | PN ---
Post Progress Note - Subjective Subjective: Patient without acute complaints. Reports tolerating oral intake without nausea or vomiting. Ambulating without dizziness. Denies fevers or chills. Pain well controlled with oral pain medication. without difficulty. Passing flatus. Post Day: 1 Type of Delivery: Repeat C/S Vital Signs: Vital Signs Temperature 98.2 F 08/05/19 02:00 Pulse Rate 80 08/05/19 02:00 Respiratory Rate 20 08/05/19 05:00 Blood Pressure 105/62 08/05/19 02:00 O2 Sat by Pulse Oximetry (%) 96 08/04/19 12:25 Breast Exam: Yes: Soft Uterus: Yes: Fundus Firm Incision: Yes: Dressing dry and intact Abdomen/GI: Yes: Tolerating PO Lochia: Yes: Rubra Lochia, amount: Small Extremities: Yes: Calves non-tender Perineum: Yes: Intact Activity: Ambulating Assessment/Plan 38yo P3 s/p Repeat c/section POD # 1 VSS, Doing well Afebrile Pain well managed Rh positive - no need for Rhogam Male not for circumcision
[2019-08-05 08:30] LABS: BASO % 0.5 % (0-2.0); EOS % 1.3 % (0-4.5); HEMATOCRIT 25.8 % (32.4-45.2); HEMOGLOBIN 8.5 GM/dL (10.7-15.3); LYMPH % 19.4 % (8-40); MCH 29.4 pg (25.7-33.7); MCHC 33.1 g/dl (32.0-36.0); MEAN CELL VOLUME 88.8 fl (80-96); MEAN PLT VOLUME 8.1 fl (7.5-11.1); MONO % 3.3 % (3.8-10.2); NEUT % 75.5 % (42.8-82.8); PLATELET COUNT 177 K/MM3 (134-434); RDW 14.6 % (11.6-15.6); WHITE BLOOD COUNT 6.1 K/mm3 (4.0-10.0)
[2019-08-05] MEDS: ENOXAPARIN NA (PORCINE) 40 MG/0.4 ML DISP.SYRIN SQ SCH (10:01)
[2019-08-05] MEDS: PRENATAL VITAMINS W/ FOLIC ACID TABLET (FP) PO SCH (10:02)
--- NOTE | 2019-08-05 11:18 | PN ---
Progress Note (short form) - Note Progress Note: POD #1 s/p c/s under spinal with Duramorph. Doing well, pain controlled, all questions answered.
[2019-08-05] MEDS ORDERED: BISACODYL 10 MG SUPP.RECT RC PRN (11:36)
[2019-08-05] MEDS: oxyCODONE HCL 5 MG TABLET PO PRN ×2 (14:38→20:03)
[2019-08-05] MEDS: IBUPROFEN 600 MG TABLET (FP) PO PRN ×2 (14:39→20:03)
[2019-08-05] MEDS: SIMETHICONE 80 MG TAB.CHEW (FP) PO PRN (14:39)
[2019-08-06] MEDS: oxyCODONE HCL 5 MG TABLET PO PRN ×3 (05:47→14:58)
[2019-08-06] MEDS: IBUPROFEN 600 MG TABLET (FP) PO PRN ×3 (05:47→14:58)
[2019-08-06 09:48] VITALS: BP 117/72; PULSE 96; TEMP 98.1
[2019-08-06] MEDS: PRENATAL VITAMINS W/ FOLIC ACID TABLET (FP) PO SCH (10:36)
[2019-08-06] MEDS: SIMETHICONE 80 MG TAB.CHEW (FP) PO PRN ×2 (10:36→14:59)
[2019-08-06] MEDS: ENOXAPARIN NA (PORCINE) 40 MG/0.4 ML DISP.SYRIN SQ SCH (10:36)
--- NOTE | 2019-08-06 18:40 | PN ---
Post Progress Note - Subjective Subjective: Patient without acute complaints. Reports tolerating oral intake without nausea or vomiting. Ambulating without dizziness. Denies fevers or chills. Pain well controlled with oral pain medication. Pumping/breast feeding without issue. Passing flatus, and BM Post Day: 2 Type of Delivery: Repeat C/S Vital Signs: Vital Signs Temperature 98.1 F 08/06/19 09:00 Pulse Rate 96 H 08/06/19 09:00 Respiratory Rate 20 08/06/19 09:00 Blood Pressure 117/72 08/06/19 09:00 O2 Sat by Pulse Oximetry (%) 96 08/04/19 12:25 Breast Exam: Yes: Soft Uterus: Yes: Fundus Firm, Fundus below umbilicus Incision: Yes: Dressing dry and intact, Sutures intact Abdomen/GI: Yes: Abdomen soft, Tolerating PO Lochia: Yes: Rubra Lochia, amount: Small Extremities: Yes: Calves non-tender Perineum: Yes: Intact Activity: Ambulating - Labs Labs: CBC WBC 6.1 K/mm3 (4.0-10.0) 08/05/19 07:30 RBC 2.90 M/mm3 (3.60-5.2) L 08/05/19 07:30 Hgb 8.5 GM/dL (10.7-15.3) L 08/05/19 07:30 Hct 25.8 % (32.4-45.2) L 08/05/19 07:30 MCV 88.8 fl (80-96) 08/05/19 07:30 MCH 29.4 pg (25.7-33.7) 08/05/19 07:30 MCHC 33.1 g/dl (32.0-36.0) 08/05/19 07:30 RDW 14.6 % (11.6-15.6) 08/05/19 07:30 Plt Count 177 K/MM3 (134-434) D 08/05/19 07:30 MPV 8.1 fl (7.5-11.1) 08/05/19 07:30 Absolute Neuts (auto) 4.6 K/mm3 (1.5-8.0) 08/05/19 07:30 Neutrophils % 75.5 % (42.8-82.8) 08/05/19 07:30 Lymphocytes % 19.4 % (8-40) D 08/05/19 07:30 Monocytes % 3.3 % (3.8-10.2) L 08/05/19 07:30 Eosinophils % 1.3 % (0-4.5) 08/05/19 07:30 Basophils % 0.5 % (0-2.0) 08/05/19 07:30 Nucleated RBC % 0 % (0-0) 08/05/19 07:30 Assessment/Plan 38yo P3 s/p primary LT C/S, doing well stable, afebrile. The pt is asymptomatic for s/sxs of anemia. care instructions reviewed. Continue routine postop care. Ambulation encouraged.
--- NOTE | 2019-08-06 18:44 | DS ---
Physical Exam-BLOG WRITER Vital Signs: Vital Signs Temperature 98.1 F 08/06/19 09:00 Pulse Rate 96 H 08/06/19 09:00 Respiratory Rate 20 08/06/19 09:00 Blood Pressure 117/72 08/06/19 09:00 O2 Sat by Pulse Oximetry (%) 96 08/04/19 12:25 Constitutional: Yes: Well Nourished, No Distress, Calm Eyes: Yes: WNL, Conjunctiva Clear, EOM Intact HENT: Yes: WNL, Atraumatic, Normocephalic Neck: Yes: WNL, Supple, Trachea Midline Cardiovascular: Yes: WNL, Regular Rate and Rhythm Respiratory: Yes: WNL, Regular, CTA Bilaterally Gastrointestinal: Yes: WNL, Normal Bowel Sounds, Soft ...Rectal Exam: Yes: Deferred Renal/: Yes: WNL External Genitalia: Yes: Normal Internal Exam Deferred: Yes ....Post : Yes: Uterus firm, Uterus non-tender, Slight lochia rubra Breast(s): Yes: WNL Musculoskeletal: Yes: WNL Extremities: Yes: WNL Edema: Yes Edema: LLE: 1+, RLE: 1+ Integumentary: Yes: WNL Wound/Incision: Yes: Clean/Dry, Well Approximated, Sutures Intact, Steri Strips, Open to air Neurological: Yes: WNL, Alert, Oriented ...Motor Strength: WNL Psychiatric: Yes: WNL, Alert, Oriented Labs: CBC, BMP 08/05/19 07:30 Delivery - Delivery Type of Anesthesia: Spinal Episiotomy/Laceration: None EBL (cc): 700 Delivery, Single - Stages of Labor Date of Delivery: 08/04/19 Time of Delivery: 10:43 Time Placenta Delivered: 10:44 Placenta: Yes: Expressed, Manual Removal, Normal Configuration - Condition of Infant Hearing Screener/Loom Technician Present: Yes Name: Roberta Zhou Gender: Male Weight: 4.224 kg Position: Left, OT Total Hours ROM (Hrs/Mins): 2min - 1 Minute Total Score: 9 5 Minutes Total Score: 9 - Donora Feeding Plan Initial Plan: Exclusive throughout hospitalization Benefits of Exclusively reinforced: Yes Discharge Summary Problems reviewed: Yes Reason For Visit: C SECTION at 39w 5d AMA Prior C/S Anemia postop Procedures: Principal: Repeat Lt C/S Other Procedures: Revision of old scar Hospital Course: Normal recovery, normal postop. Plan of Treatment: Continue pain medications, continue vitamins and iron Goals: Normal recovery, normal postop. Condition: Good - Instructions Diet, Activity, Other Instructions: Physical activity Resume your normal everyday activity as tolerated no heavy lifting or exercise until seen by your surgeon. You may walk unlimited yens of and climb stairs. You may resume driving the car when you feel safe and comfortable behind the wheel. No sexual activity as instructed. Wound care If you have a bandage, leave it on, and keep dry for 48-72 hours. After that time discard the outer bandage. If they are tapes on the skin under the out of bandage leave them in place. They will peel off in the next 7 to 10 days. Do Not Peel them off. You may shower the day after surgery. If there are tapes present on the skin, you may shower over them. Diet There are no dietary restrictions. Eat healthy, high-fiber foods. Drink 6 to 8 glasses of liquid each day. This will assist in keeping your bowels are regular. Pain management You may take Tylenol or acetaminophen or Ibuprofen (for example, Motrin, Advil etc.) from my pain prescription medication is ordered should be taken as pr escribed for moderate to severe pain. Call MD for any of the following: Severe pain not relieved by medication Fever of 101 or higher Excessive bleeding or drainage on dressing Inability to urinate Referrals: Miguelangel Worrell MD [Staff Physician] - 1 Week - Home Medications Comprehensive Discharge Medication List: Ambulatory Orders Pnv No.95/Ferrous Fum/Folic AC [ Vitamin Tablet] 1 each PO DAILY 08/04/19 Valacyclovir HCl [Valtrex] 500 mg PO DAILY 08/04/19 Prescription Drug Monitoring Program (I-STOP) results: I-STOP not reviewed
--- NOTE | 2019-08-07 12:09 | PATH ---
Surgical Pathology Report Patient Name: MARGARITO AYALA Med. Rec. 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 Specimen(s) Received A: PLACENTA B: OLD C/SECTION SCAR Clinical History 39.2 weeks repeat Final Diagnosis A. PLACENTA: THIRD TRIMESTER PLACENTA WITH SUBCHORIONIC AND PERIVILLOUS FIBRIN DEPOSITION. TRIVASCULAR CORD. MEMBRANES WITH NO DIAGNOSTIC ABNORMALITIES. B. OLD SCAR, EXCISION: PORTION OF SKIN WITH SCAR Electronically Signed Fish Grimes M.D. Gross Description A. The specimen is received fresh labeled placenta and is a 686 gram, 19.5 x 18.0 x 3.5 cm. placenta with attached membranes and umbilical cord. The attached membranes are kohli, translucent with focal opacities and insert marginally. The umbilical cord measures 18 cm. in length and averages 1.3 cm. in diameter. The cord inserts eccentrically, 3.5 cm. to the nearest margin. No true knots or strictures are identified. Cut surface of the umbilical cord reveals 3 vessels. The surface is bryant-blue with minimal fibrin deposition and appropriate caliber vessels. The maternal surface is red-brown with focal defects. Sectioning reveals red-brown, spongy parenchyma. No lesions are identified. Design Consultant sections are submitted in three cassettes as follows: 1- membrane rolls and umbilical cord; 2-3- full thickness sections of placenta. B. Received in formalin labeled "old scar," is an 11.0 x 0.7 cm brown, elliptical, unoriented portion of skin. The epidermal surface displays a central, linear, well-healed scar. Design Consultant sections are submitted in one cassette. 08/06/2019 [facility]08/06/2019
--- NOTE | 2019-08-22 14:47 | OP ---
DATE OF OPERATION: 08/04/2019 PREOPERATIVE DIAGNOSIS: at estimated gestational age of 39 weeks and 5 days, previous section x2, advanced maternal age. POSTOPERATIVE DIAGNOSIS: at estimated gestational age of 39 weeks and 5 days, delivered; previous section x2; advanced maternal age. PROCEDURE: Repeat low transverse section. Revision of a keloid scar. SURGEON: Tigre Worrell MD ROADWAY ENGINEER: Sheree Ortiz MD ANESTHESIOLOGIST: Charissa Coats MD ANESTHESIA: Spinal. COMPLICATIONS: None. ESTIMATED BLOOD LOSS: 700 mL. INTRAVENOUS FLUIDS: 2000 mL. URINE OUTPUT: 200 mL of clear urine at the end of the procedure. PATHOLOGY: Placenta and old skin scar. FINDINGS: Live baby boy in vertex presentation. Head was not engaged. No meconium was noted in amniotic fluids. Apgars 9 and 9. There were dense adhesions noted around the bladder and lower uterine segment. Normal uterus, fallopian tubes, and ovaries were observed. Baby's weight is 9 pounds and 5 ounces. DESCRIPTION OF PROCEDURE: The patient was met preoperatively. Risks, benefits, alternatives of surgery were discussed in detail. All questions were answered. The patient was brought to the OR with the IV running. The patient was sat up on the surgical table. The spinal anesthesia was achieved without difficulty. The patient was then positioned in a supine position with a leftward tilt. She was prepped and draped in the usual sterile fashion. A Coyne catheter was inserted and left to drain to gravity. A timeout procedure was conducted as per standard protocol. The surgeons then proceeded with the operation. A Pfannenstiel skin incision was made with the knife along the prior scar. The incision was taken down to the level of fascia. The fascia was incised in the midline. The incision was extended bilaterally using Abraham scissors. The fascia was dissected away from rectus muscles superiorly and inferiorly. The rectus muscles were in the midline using sharp dissection. The peritoneum was identified, tented up with 2 Aye clamps and entered sharply. The peritoneal incision was extended superiorly and inferiorly. There were dense adhesions noted around the bladder and lower uterine segment. The bladder was carefully dissected away from the lower uterine segment using sharp dissection. The bladder was reflected downwards using a Lincoln retractor. The uterus was incised transversely in the lower uterine segment. The incision was extended bilaterally using bandage scissors. The amniotic fluid was noted to be clear. The baby was delivered from vertex presentation without complications. The baby was crying spontaneously. The umbilical cord was clamped and cut. The baby was handed to the awaiting set up operator. The placenta was manually expressed and delivered without complications. The uterus was cleared of all clots and debris. The uterine incision was then repaired using 0 Biosyn suture with a running locking stitch. Good hemostasis was noted. The uterine incision was then imbricated using a 0 Biosyn suture with good hemostasis and approximation. The uterus was noted to be well contracted. The bladder peritoneum was reapproximated using a 0 Biosyn suture. The operative site was irrigated using copious amounts of normal saline. Once the saline was aspirated, good hemostasis was noted. The parietal peritoneum was approximating using a 2-0 chromic suture. The rectus muscles were approximated in the midline using several 2-0 chromic sutures in interrupted fashion. The fascia was closed with a 0 Vicryl suture using a running stitch. Good hemostasis and approximation were noted. The subcutaneous adipose tissues and Rudi's fascia were approximated using several interrupted 0 Vicryl sutures. The keloid Pfannenstiel scar was then excised and sent to pathology. The skin incision was closed using a 3-0 Vicryl suture with a subcutaneous stitch. Good hemostasis and approximation were noted. Sponge, lap, needle counts were correct. The patient was transferred to recovery room in stable condition and awake. TIGRE WORRELL M.D. [id number]
== END 2019-08-06 19:30 | disposition home or self-care (01) | DRG 540 ==
LOC: JLDR 07:10 → J3W 13:30
PROVIDERS: ADMIT Obstetrics & Gynecology; ATTEND Obstetrics & Gynecology
PROC: 10D00Z1 Extraction of Products of Conception, Low, Open Approach (ICD-10-PCS; principal; 2019-08-04)
DX: O34.211 Maternal care for low transverse scar from previous cesarean delivery (principal); N85.8 Other specified noninflammatory disorders of uterus; O99.02 Anemia complicating childbirth; Z3A.39 39 weeks gestation of pregnancy; Z37.0 Single live birth
CPT/HCPCS: 36415; 36600; 82803; 85025; 88304-TC; 88307-TC; J0131